=== PATIENT | female | born 2000 ===

== ENCOUNTER 2018-08-21 15:55 | Emergency (ER) | payer OTHER ==
[2018-08-21 16:36] VITALS: BP 125/88
[2018-08-21] MEDS ORDERED: Ibuprofen TAB* 600 MG PO ONE (17:20)
--- NOTE | 2018-08-21 17:29 | UC ---
Respiratory Complaint HPI - HPI Summary HPI Summary: 18-year-old woman comes in with a chief complaint of 3 days of upper respiratory tract infection symptoms. She's had some rhinorrhea. She is also coughing up yellow sputum. She feels chest congestion and she does have splinting chest pain in the posterior thoracic area. She has had wheezing. She does have a history of asthma. She does have albuterol to use. She has had chills not has not measured any fevers. Denies any calf pain or calf swelling or calf tenderness no history of DVT or PE. - History of Current Complaint Chief Complaint: UCRespiratory Stated Complaint: CHILLS,HISTORY OF ASTHMA Time Seen by Provider: 08/21/18 17:13 Hx Last Menstrual Period: 07/23/18 Pain Intensity: 6 - Allergies/Home Medications Allergies/Adverse Reactions: Allergies Allergy/AdvReac Type Severity Reaction Status Date / Time mold, grass pet dander, some Allergy Wheezing Uncoded 08/21/18 17:31 trees Home Medications: Home Medications Albuterol HFA INHALER* [Ventolin HFA Inhaler*] 2 puff INH Q6H PRN 08/21/18 [ History Confirmed 08/21/18] Norgestimate-Ethinyl Estradiol [Ortho Tri-Cyclen Lo Tablet] 1 each PO DAILY 07/10 [History Confirmed 08/21/18] PMH/Surg Hx/FS Hx/Imm Hx Previously Healthy: Yes Respiratory History: Asthma - Surgical History Surgical History: None - Family History Known Family History: Positive: Non-Contributory - Social History Alcohol Use: Weekly Substance Use Type: Marijuana Smoking Status (MU): Never Smoked Tobacco Review of Systems All Other Systems Reviewed And Are Negative: Yes Constitutional: Positive: Chills Skin: Positive: Negative Eyes: Positive: Negative ENT: Positive: Nasal Discharge, Sinus Congestion Respiratory: Positive: Cough, Other - see hpi Cardiovascular: Positive: Chest Pain, Other - see hpi Gastrointestinal: Positive: Negative Motor: Positive: Negative Neurovascular: Positive: Negative Musculoskeletal: Positive: Negative. Negative: Calf Tenderness, Edema Neurological: Positive: Negative Psychological: Positive: Negative Is Patient Immunocompromised?: No Physical Exam Triage Information Reviewed: Yes Appearance: No Pain Distress, Well-Nourished, Ill-Appearing - mild Vital Signs: Initial Vital Signs Temp 98.8 F 08/21/18 16:32 Pulse 114 08/21/18 16:32 Resp 16 08/21/18 16:32 BP 125/88 08/21/18 16:32 Pulse Ox 100 08/21/18 16:32 Vital Signs Reviewed: Yes Eye Exam: Normal Eyes: Positive: Conjunctiva Clear ENT: Positive: Pharyngeal erythema, Nasal congestion, Nasal drainage, TMs normal Neck exam: Normal Neck: Positive: Supple Respiratory: Positive: No respiratory distress, Rhonchi - left posterior. Negative: Respiratory distress Cardiovascular: Positive: Tachycardia Musculoskeletal Exam: Normal Musculoskeletal: Positive: Strength Intact, ROM Intact, No Edema, Other: - no calf tenderness Neurological Exam: Normal Neurological: Positive: Alert, Muscle Tone Normal Psychological Exam: Normal Psychological: Positive: Age Appropriate Behavior Skin Exam: Normal Respiratory Course/Dx - Course Course Of Treatment: Patient Name: HERNANDEZ VENCES Medical Record#: [id number] Ordering Physician: Alexander Angel MD Acct.#: [id number] : 2000 Age: 18 Sex: F Location: [facility] Exam Date: 08/21/181719 ADM Status: REG ER Order Information: CHEST PA LAT 2 VWS Accession Number: [id number] CPT: 52519 INDICATION: Cough chills thoracic splinting pain. COMPARISON: There are no relevant prior studies available for comparison. TECHNIQUE: Dual-energy PA and lateral views of the chest were obtained. FINDINGS: The heart is within normal limits in size. Mediastinal and hilar contours appear within normal limits. The lungs are clear. No pleural effusion is present. IMPRESSION: NO EVIDENCE FOR ACTIVE CARDIOPULMONARY DISEASE. <Electronically signed by Neil Tejada MD in OV> 08/21/18 [id number] I discussed the chest x-ray with the patient. The plan is to treat for bronchitis with bronchospasm. We discussed viral versus bacterial infections at this time the patient prefers to be on an antibiotic. She tells me artery she had he has albuterol at home which she can use for the bronchospasm. Patient is low risk for pulmonary embolus. She has no calf pain or calf tenderness or calf swelling. We discussed that if she worsens or did not improve she needs to get reevaluated right away. - Differential Dx/Diagnosis Provider Diagnosis: Bronchitis with bronchospasm Discharge - Sign-Out/Discharge Documenting (check all that apply): Patient Departure All imaging exams completed and their final reports reviewed: Yes - Discharge Plan Condition: Stable Disposition: HOME Prescriptions: Azithromyxin [place] (NF) [Z-[place] (Zithromax) 250 mg tabs #6] 2 tab PO .TODAY, THEN 1 DAILY #6 tab Patient Education Materials: Acute Bronchitis (ED), Bronchospasm (ED) Forms: *School Release Referrals: [facility] [Outside] Additional Instructions: FOLLOW UP WITH YOUR DOCTOR IF NOT COMPLETELY IMPROVED. GET REEVALUATED SOONER FOR ANY WORSENING OF YOUR CONDITION OR ANY QUESTIONS OR CONCERNS. - Billing Disposition and Condition Condition: STABLE Disposition: Home
== END 2018-08-21 18:26 | disposition home or self-care (01) ==
LOC: UCCORT 15:55
DX: J45.909 Unspecified asthma, uncomplicated (principal); J20.9 Acute bronchitis, unspecified
CPT/HCPCS: 71046; 99202; A9270-GY; G0463